=== PATIENT | male | born 2000 | race Caucasian/White ===

== ENCOUNTER 2019-10-24 15:47 | Emergency (ER) | payer OTHER ==
--- NOTE | 2019-10-24 16:31 | ED Physician Documentation ---
PD HPI CHEST PAIN - Stated complaint Stated Complaint: CHEST PALPITATIONS, DISCOMFORT - Chief complaint Chief Complaint: Cardiac - History obtained from History obtained from: Patient - History of Present Illness Timing - onset: Yesterday (noted a feeling of discomfort/ fluttering in chest yesterday when exercising. Had felt he had not hydrated well so had some water and then resumed working out and felt okay. Symptoms lasted about 5-10 minutes. Had similar feeling in chest when sitting in chair rested today. No dyspnea. Had mild lightheaded feeling. Again lasted few minutes then improved. States he does drink a lot of energy drinks.) Timing - onset during: Rest (today), Exertion (yesterday) Timing - duration: Minutes Timing - details: Abrupt onset, Now resolved Quality: Tightness, Throbbing. No: Sharp Location: Substernal Associated symptoms: Feeling faint / dizzy, Palpitations (did not have surging per se, but felt some irregular movement feeling in chest.). No: Shortness of air, Nausea, General Weakness Similar symptoms before: Has not had sx before Review of Systems Constitutional: denies: Fever, Chills Nose: denies: Rhinorrhea / runny nose, Congestion Throat: denies: Sore throat Respiratory: denies: Cough GI: denies: Nausea, Vomiting, Diarrhea Skin: denies: Rash, Lesions Neurologic: denies: Near syncope, Altered mental status, Headache Endocrine: denies: Weight loss, Weight gain PD PAST MEDICAL HISTORY - Past Medical History Cardiovascular: None Respiratory: None Neuro: None Endocrine/Autoimmune: None - Allergies Allergies/Adverse Reactions: Allergies Allergy/AdvReac Type Severity Reaction Status Date / Time No Known Drug Allergies Allergy Verified 10/24/19 15:56 PD ED PE NORMAL - Vitals Vital signs reviewed: Yes - General General: Alert and oriented X 3, No acute distress, Well developed/nourished - HEENT HEENT: Moist mucous membranes, Pharynx benign - Neck Neck: Supple, no meningeal sign, No adenopathy, Thyroid normal - Cardiac Cardiac: RRR, No murmur - Respiratory Respiratory: Clear bilaterally - Abdomen Abdomen: Soft, Non tender - Derm Derm: Normal color, Warm and dry - Extremities Extremities: No tenderness to palpate, Normal ROM s pain, No edema, No calf tenderness / cord - Neuro Neuro: Alert and oriented X 3, No motor deficit, Normal speech Results - Vitals Vitals: Vital Signs - 24 hr 10/24/19 10/24/19 15:56 17:49 Temperature 36.8 C Heart Rate 77 67 Respiratory 14 18 Rate Blood Pressure 130/79 120/57 L O2 Saturation 99 99 Oxygen O2 Source Room air - EKG (time done) 15:51 Rate: Rate (enter#) (71) Rhythm: NSR [place]: Normal Intervals: Normal DC QRS: Normal Ischemia: Normal ST segments. No: ST elevation c/w ischemia, ST depression Compare to prior EKG: Old EKG unavailable - Labs Labs: Laboratory Tests 10/24/19 10/24/19 10/24/19 17:06 17:06 17:06 WBC 10.9 H RBC 4.97 Hgb 16.0 Hct 45.3 MCV 91.1 MCH 32.2 H MCHC 35.3 RDW 12.3 Plt Count 254 MPV 8.9 Neut # (Auto) 8.3 H Lymph # (Auto) 1.8 [place] # (Auto) 0.7 Eos # (Auto) 0.0 Baso # (Auto) 0.0 Absolute Nucleated RBC 0.00 Nucleated RBC % 0.0 Sodium 133 L Potassium 3.5 Chloride 96 L Carbon Dioxide 27 Anion Gap 10.0 BUN 12 Creatinine 0.9 Estimated GFR (MDRD) 107 Glucose 113 H Calcium 9.5 Total Bilirubin 1.4 H AST 76 H ALT 203 H Alkaline Phosphatase 93 Total Creatine Kinase 203 Total Protein 8.3 H Albumin 5.1 Globulin 3.2 Albumin/Globulin Ratio 1.6 Lipase 21 L TSH 2.48 PD MEDICAL DECISION MAKING - ED course Complexity details: considered differential (consider palpitations/ irregular rhythm or could be reflux, or some other cause. Was brief and self-limited. ), d/w patient Departure - Departure Disposition: Home, Self Care Clinical Impression: Chest discomfort Condition: Stable Record reviewed to determine appropriate education?: Yes Instructions: ED Palpitations Follow-Up: JALEESA Goldberg [Provider Group] Comments: Stay well-hydrated. Decrease the use of the caffeinated drinks. Your basic electrolytes, kidney function, and blood sugar are okay here. Your EKG was normal as well. No obvious significant cause for your symptoms at this point. It may have been some irregularity of the heart rhythm though certainly could have even been things like reflux or other benign causes. Follow-up with your primary care if repeated episodes over the next several days. Return if worsening symptoms or new symptoms. Discharge Date/Time: 10/24/19 17:50
[2019-10-24 17:11] LABS: BASOPHILS % (AUTO) 0.4 %; EOSINOPHILS % (AUTO) 0.3 %; LYMPHOCYTES # (AUTO) 1.8 10^3/uL (1.5-3.5); LYMPHOCYTES % (AUTO) 16.5 %; MEAN CORPUSCULAR HEMOGLOBIN 32.2 pg (27.0-31.0); MEAN CORPUSCULAR HGB CONC 35.3 g/dL (32.0-36.0); MEAN CORPUSCULAR VOLUME 91.1 fL (80.0-94.0); MEAN PLATELET VOLUME 8.9 fL (7.4-11.4); MONOCYTES # (AUTO) 0.7 10^3/uL (0.0-1.0); MONOCYTES % (AUTO) 6.3 %; NEUTROPHILS # (AUTO) 8.3 10^3/uL (1.5-6.6); NEUTROPHILS % (AUTO) 75.9 %; PLT - PLATELET COUNT 254 10^3/uL (130-450); RED BLOOD COUNT 4.97 10^6/uL (4.70-6.10); RED CELL DISTRIBUTION WIDTH 12.3 % (12.0-15.0); WHITE BLOOD COUNT 10.9 x10^3/uL (4.8-10.8)
[2019-10-24 17:29] LABS: ALBUMIN 5.1 g/dL (3.2-5.5); ALBUMIN/GLOBULIN RATIO 1.6 (1.0-2.2); BILIRUBIN,TOTAL 1.4 mg/dL (0.2-1.0); CALCIUM 9.5 mg/dL (8.5-10.3); CREATININE 0.9 mg/dL (0.6-1.2); TOTAL PROTEIN 8.3 g/dL (6.7-8.2)
[2019-10-24 17:50] VITALS: BP 120/57
== END 2019-10-24 17:50 | disposition home or self-care (01) ==
LOC: ED 15:47
DX: R07.89 Other chest pain (principal); R00.2 Palpitations; R42 Dizziness and giddiness
CPT/HCPCS: 36415; 80053; 82550; 83690; 84443; 85025; 93005; 99283; 99284